=== PATIENT | female | born 1980 ===

== ENCOUNTER 2018-02-15 15:27 | Emergency (ER) | payer OTHER ==
[2018-02-15 15:51] VITALS: PULSE 70
[2018-02-15 16:00] VITALS: BMI 20.7
--- NOTE | 2018-02-15 16:08 | ED PDOC ---
Arrival/HPI - General Chief Complaint: Trauma Time Seen by Provider: 02/15/18 16:05 - History of Present Illness Narrative History of Present Illness (Text): 37 year old F c no Past medical history p/w R hand 3rd digit pain today. Reports crushed in machine at work. Went to Urgent Care center, had XR, shows fracture. Took ibuprofen 4 hours ago. Reports severe pain. Numbness initially, has largely resolved. Motor intact. Past Medical History - Infectious Disease Hx of Infectious Diseases: None - Psychiatric Hx Substance Use: No - Surgical History Hx Appendectomy: Yes Hx Section: Yes Family/Social History Family/Social History: No Known Family HX Smoking Status: Never Smoked Hx Alcohol Use: No Hx Substance Use: No Allergies/Home Meds Allergies/Adverse Reactions: Allergies No Known Allergies Allergy (Verified 02/15/18 17:04) Review of Systems - Physician Review All systems were reviewed & negative as marked: Yes - Review of Systems Constitutional: absent: Fevers Respiratory: absent: SOB Physical Exam - Physical Exam Narrative Physical Exam (Text): Gen: Uncomfortable Head: AT Extremities: R hand 3rd digit with distal phalanx swelling with ecchymosis, no subungual hematoma. Dried blood at nail bed. Able to flex digits. Sensation to touch intact. No open wound or exposed bone. Vital Signs Temp Pulse Resp BP Pulse Ox 02/15/18 15:28 97.9 F 70 18 128/86 100 Medical Decision Making ED Course and Treatment: Dr. Chambers saw patient in Emergency department, treated finger, splint applied. See his note. - Medication Orders Current Medication Orders: Discontinued Medications Oxycodone/Acetaminophen (Percocet 5/325 Mg Tab) 1 tab PO STAT STA Stop: 02/15/18 17:47 Disposition/Present on Arrival - Present on Arrival Any Indicators Present on Arrival: No History of DVT/PE: No History of Uncontrolled Diabetes: No Urinary Catheter: No History of Decub. Ulcer: No History Surgical Site Infection Following: None - Disposition Have Diagnosis and Disposition been Completed?: Yes Diagnosis: Finger fracture Disposition: HOME/ ROUTINE Disposition Time: 17:50 Patient Plan: Discharge Condition: STABLE Discharge Instructions (ExitCare): Finger Fracture Prescriptions: oxyCODONE/Acetaminophen [Percocet 5/325 mg Tab] 1 tab PO Q6 #16 tab Referrals: Felix Caballero DO [Staff Provider] - Follow up with primary Forms: [employer] Connect (Setswana), WORK NOTE
[2018-02-15] MEDS ORDERED: Oxycodone/Acetaminophen 5/325 mg Tab PO STA (17:46)
[2018-02-15 18:07] VITALS: BP 118/70; RESP 17; TEMP 98; O2SAT 99
--- NOTE | 2018-02-16 08:31 | CON ---
DATE: 02/15/2018 ORTHOPEDIC CONSULTATION LOCATION: Emergency Room. HISTORY OF PRESENT ILLNESS: The patient is a 37-year-old female who got a crush injury to the distal phalanx of the third digit, right hand, which is her dominant hand and has a tuft fracture of the distal phalanx, minimally displaced, but with swelling of the distal phalanx and mild subungual hematoma. She has pain to touch and from the fracture of the distal phalanx. We are going to treat her symptomatically with a digital splint and tell her to do ice and elevation and see her in the office tomorrow to give her a better splint that they do not have in the ER today and she does have a small subungual hematoma. We will evaluate it tomorrow and keep it clean with soap and water or Betadine. FINAL DIAGNOSES: Fracture, distal phalanx, right third digit of her dominant hand. We will put a splint on and follow her closely to see if she needs evacuation of the subungual hematoma. She was told not to go to work for at least 2 to 3, march 3 to 4 weeks. Felix Caballero DO
== END 2018-02-15 18:14 | disposition home or self-care (01) ==
LOC: ED 15:27
DX: S62.632A Displaced fracture of distal phalanx of right middle finger, initial encounter for closed fracture (principal); W23.0XXA Caught, crushed, jammed, or pinched between moving objects, initial encounter

== ENCOUNTER 2018-02-22 14:29 | Emergency (ER) | payer OTHER ==
[2018-02-22 14:58] VITALS: BMI 22.3
--- NOTE | 2018-02-22 15:29 | ED PDOC ---
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 pt had crush injury on 02/15 and was seen in er by orthopedist dr. phillips. pt states that she finally has the Policy number and needs follow up for her injury. pt c/o continued pain to the right 3rd finger. pt also states she is now having pain to 3-5th fingers. pt states pt c/o pain with flexion of the distal phalanx. Time/Duration: Other (02/15) Symptom Course: Unchanged Quality: Throbbing Past Medical History - Provider Review Nursing Documentation Reviewed: Yes - Travel History Have you recently traveled outside [place] w/in the past 3 mons?: No - Infectious Disease Hx of Infectious Diseases: None - Tetanus Immunization Tetanus Immunization: Unknown - Psychiatric Hx Substance Use: No - Surgical History Hx Appendectomy: Yes Hx Section: Yes Family/Social History - Physician Review Nursing Documentation Reviewed: Yes Family/Social History: Unknown Family HX Smoking Status: Never Smoked Hx Alcohol Use: No Hx Substance Use: No Allergies/Home Meds Allergies/Adverse Reactions: Allergies No Known Allergies Allergy (Verified 02/15/18 17:04) Review of Systems - Review of Systems Constitutional: absent: Fatigue, Fevers Respiratory: absent: SOB, Cough Cardiovascular: absent: Chest Pain, Palpitations Gastrointestinal: absent: Abdominal Pain, Nausea, Vomiting Musculoskeletal: Arthralgias Skin: absent: Cellulitis Neurological: absent: Headache Physical Exam Vital Signs Reviewed: Yes Vital Signs Temp Pulse Resp BP Pulse Ox 02/22/18 15:15 98.1 F 81 18 119/82 100 02/22/18 14:54 98.4 F Temperature: Afebrile Blood Pressure: Normal Pulse: Regular Respiratory Rate: Normal Appearance: Positive for: Well-Appearing, Non-Toxic, Comfortable Pain Distress: None Mental Status: Positive for: Alert and Oriented X 3 - Systems Exam Head: Present: Atraumatic Respiratory/Chest: Present: Clear to Auscultation Cardiovascular: Present: Regular Rate and Rhythm Upper Extremity: Present: NORMAL PULSES, Tenderness (right hand; + swelling noted over the distal phalanx of the 3rd finger; + ecchymosis; no erythema; sensation intact. cap refill <2. + ttp over 4th finger at PIP and 5th finger at PIP; full rom of 1,2,4,5th fingers. limited flexion of 3rd finger at DIP joint. no subungal hematoma ), Swelling, Neurovascularly Intact, Capillary Refill < 2s. No: Normal ROM, Erythema, Deformity Neurological: Present: GCS=15, Speech Normal Skin: Present: Warm, Dry Psychiatric: Present: Alert, Oriented x 3 Medical Decision Making ED Course and Treatment: 02/22/18 15:34 Patient nontoxic well-appearing in no distress with stable vital signs X-rays of the right hand; FINDINGS: BONES: Avulsion fracture distal tuft right 3rd digit. JOINTS: Normal. No osteoarthritic changes. SOFT TISSUES: No little appreciable soft tissue swelling. OTHER FINDINGS: None. IMPRESSION: Comminuted avulsion fracture/crush injury related distal tuft 3rd digit. Patient placed into new finger splint. I discussed all results with patient advised to followup with the orthopedist/ hand specialist within the next 2 days. Return if symptoms worsen persist or new symptoms develop case discussed with dr. phillips; he states patient needs to f/u with workers comp, or her main line assembler can call the office. I had a Long in-depth conversation with the patient and her family regarding orthopedic follow-up. He stated that they have as that told him to come here. I told them Dr. Phillips set have the call the office to help arrange follow- up. I also gave him information to the hypoid gear generator service as well as the orthopedic clinic as well as Dr. Noland and Dr. Herrera for additional follow-up options. This information was translated to the patient and family using's translation on #[id number]. The patient has requested a copy of the x-rays. A copy of the x-rays have been given to the patient. Patient/family verbalizes understanding of discharge instructions and need for immediate followup. all aspects of this case were discussed the attending of record. Impression: finger fracture Motrin every 6 hours as needed for pain Followup with the orthopedist within the next 2 days Followup with primary care physician within the next 2 days Return if any other concerning symptoms develop 02/22/18 17:36 - RAD Interpretation Radiology Orders: 02/22/18 15:29 HAND RIGHT 3 VIEWS [RAD] Stat - Medication Orders Current Medication Orders: Discontinued Medications Tetanus/Reduced Diphtheria/Acell Pertussis (Boostrix Vaccine Inj) 0.5 ml IM .ONCE ONE Stop: 02/22/18 15:33 Last Admin: 02/22/18 16:36 Dose: 0.5 ml MAR Immunization Data Document 02/22/18 16:36 [facility] (Rec: 02/22/18 16:36 [id number] Immunization Data Vaccine Information Sheet Given No Immunization Registry Document 02/22/18 16:36 [facility] (Rec: 02/22/18 16:36 [id number] Immunization Registry Consent Date 02/22/18 Disposition/Present on Arrival - Present on Arrival Any Indicators Present on Arrival: No History of DVT/PE: No History of Uncontrolled Diabetes: No Urinary Catheter: No History of Decub. Ulcer: No History Surgical Site Infection Following: None - Disposition Have Diagnosis and Disposition been Completed?: Yes Diagnosis: Finger fracture Disposition: HOME/ ROUTINE Disposition Time: 16:36 Patient Plan: Discharge Patient Problems: Current Active Problems Problem Status Onset Finger fracture Acute Condition: GOOD Discharge Instructions (ExitCare): Finger Fracture (DC) Additional Instructions: Motrin every 6 hours as needed for pain Use finger splint. Followup with the orthopedist within the next 2 days Followup with primary care physician within the next 2 days Return if any other concerning symptoms develop Prescriptions: Ibuprofen [Motrin] 600 mg PO Q6H PRN #20 tab PRN Reason: pain/fever reduction Referrals: Felix Phillips DO [Staff Provider] - Follow up with primary Florencio Noland MD [Staff Provider] - Follow up with primary Richard Herrera MD [Staff Provider] - Follow up with primary [facility] [Outside] - Follow up with primary [facility] [Outside] - Follow up with primary Forms: [employer] (Sinhala), WORK NOTE
[2018-02-22] MEDS ORDERED: TDAP Vaccine 0.5 mL Syr IM ONE (15:32)
[2018-02-22 15:35] VITALS: RESP 18; TEMP 98.1; O2SAT 100
--- NOTE | 2018-02-22 16:35 | RAD ---
PROCEDURE: Right Hand Radiographs. HISTORY: pain 3-5th finger. hx of fx 3rd finger COMPARISON: None. FINDINGS: BONES: Avulsion fracture distal tuft right 3rd digit. JOINTS: Normal. No osteoarthritic changes. SOFT TISSUES: No little appreciable soft tissue swelling. OTHER FINDINGS: None. IMPRESSION: Comminuted avulsion fracture/crush injury related distal tuft 3rd digit.
[2018-02-22 17:43] VITALS: BP 123/76; PULSE 72
== END 2018-02-22 18:23 | disposition home or self-care (01) ==
LOC: ED 14:29
DX: S62.632D Displaced fracture of distal phalanx of right middle finger, subsequent encounter for fracture with routine healing (principal); W23.0XXD Caught, crushed, jammed, or pinched between moving objects, subsequent encounter; Z23 Encounter for immunization